=== PATIENT | male | born 1970 | race Caucasian/White ===

== ENCOUNTER 2017-08-23 06:02 | Emergency (ER) | payer OTHER ==
[~2017-08-23] VITALS: Ht 177.8 cm; Wt 152.8 kg
[~2017-08-23 06:02] MED LIST: VNTHFA/IN INH
[2017-08-23 06:06] VITALS: TEMP 36.4; Ht 177.8 cm; Wt 152.8 kg
[2017-08-23] MEDS ORDERED: MoRPHine SULFATE 4 MG/ML 1 ML CARP\\VIAL IV STA (06:21)
[2017-08-23] MEDS ORDERED: KETOROLAC TROMETHAMINE 30 MG/ML VIAL IV STA (06:21)
[2017-08-23] MEDS ORDERED: ONDANSETRON INJ 2 MG/ML 2 ML VIAL IV STA (06:21)
[2017-08-23] MEDS ORDERED: SODIUM CHLORIDE 0.9% 500ML 500 ML IV STA (06:21)
--- NOTE | 2017-08-23 06:25 | EMERGENCY ROOM VISIT NOTE ---
History Report prepared by Tatiana: Mamadou Melgar Under the Supervision of: Dr. Nataly Hammond D.O. First contact with patient: 06:10 Chief Complaint: FLANK PAIN Stated Complaint: SHARP PAINS FROM BACK TO ABDOMEN History of Present Illness The patient is a 47 year old male who presents to the Emergency Room with complaints of waxing and waning left sided abdominal pain that began this morning at 0015, 6 hours prior to arrival. The patient states that he went to bed this morning at 0000, and was woken up at 0015 with pain behind his left ribs. The pain in his ribs radiated into his left upper and lower abdomen. This is where his pain is present currently, with radiation down into his testicles. He rates the current pain as a 6/10 in severity. He denies any urinary irregularities before noticing the pain. The patient also complains of fevers, chills, nausea, and vomiting. He has no previous episodes of these symptoms. Source of History: patient Onset: 6 hours [employer] Position: abdomen (Left side, left ribs) Timing: waxes/wanes Associated Symptoms: + fevers, + chills, + nausea, + vomiting, No urinary symptoms Review of Systems See HPI for pertinent positives & negatives. A total of 10 systems reviewed and were otherwise negative. Past Medical & Surgical Medical Problems: (1) Cholecystectomy planned Family History Diabetes mellitus FHx: cancer Gallbladder disease Hypertension Social History Smoking Status: Never Smoker Marital Status: Housing Status: lives with family Occupation Status: employed Current/Historical Medications Scheduled Albuterol Hfa (Ventolin Hfa), 2 PUFFS INH Q6H Losartan Potassium (Cozaar), 100 MG PO DAILY Ondasetron Odt (Zofran Odt), 4 MG SL Q8 Tamsulosin Hcl (Flomax), 0.4 MG PO DAILY Scheduled PRN Oxycodone/Acetaminophen 5MG/325MG (Percocet 5MG/325MG), 1-2 TABS PO Q4H PRN for Pain Allergies Coded Allergies: NO KNOWN DRUG ALLERGIES (Verified Allergy, Unknown, ., 07/18/16) Physical Exam Vital Signs Date Time Temp Pulse Resp B/P (MAP) Pulse Ox O2 Delivery O2 Flow Rate FiO2 08/23/17 08:12 88 20 159/99 100 08/23/17 06:58 78 20 154/97 100 08/23/17 06:06 36.4 93 18 166/87 97 Room Air Physical Exam GENERAL: alert, well appearing, well nourished, no distress, non-toxic EYE EXAM: normal conjunctiva, PERRL and EOM's grossly intact OROPHARYNX: no exudate, no erythema, lips, buccal mucosa, and tongue normal and mucous membranes are moist NECK: supple, no nuchal rigidity, no adenopathy, non-tender LUNGS: Clear to auscultation. Normal chest wall mechanics HEART: no murmurs, S1 normal and S2 normal ABDOMEN: abdomen soft, non-tender, normo-active bowel sounds, no masses, no rebound or guarding. BACK: Minimal left flank pain. Back is symmetrical on inspection and there is no deformity, no midline tenderness, no CVA tenderness. SKIN: no rashes and no bruising UPPER EXTREMITIES: upper extremities are grossly normal. LOWER EXTREMITIES: No pitting edema. NEURO EXAM: Normal sensorium, cranial nerves II-XII [grossly] intact, normal speech, no [gross] weakness of arms, no [gross] weakness of legs. [No drift. Finger to nose intact. Gross sensation intact.] Medical Decision & Procedures ER Provider Diagnostic Interpretation: Radiology results have been interpreted by the radiologist and reviewed by me. CT OF THE ABDOMEN AND PELVIS WITHOUT CONTRAST, STONE PROTOCOL CLINICAL HISTORY: Left flank pain. COMPARISON STUDY: None. TECHNIQUE: Helical axial images of the abdomen and pelvis were obtained without IV or oral contrast according to renal stone protocol. A dose lowering technique was utilized adhering to the principles of ALARA. FINDINGS: A 9 mm x 6 mm proximal left ureteral calculus results in mild to moderate left hydronephrosis with moderate perinephric infiltration. No additional urinary calculi are identified. Evaluation of the remainder of the abdomen and pelvis is suboptimal on this unenhanced exam. A small hiatal hernia is noted. The patient is status post gastric bypass. There is no evidence for bowel obstruction. There is no biliary ductal dilatation status post cholecystectomy. Unenhanced images of liver, spleen, adrenal glands and pancreas are unremarkable. The appendix is normal. There is no lymphadenopathy. No suspicious skeletal lesions are identified. IMPRESSION: 1. 9 mm x 6 mm proximal left ureteral calculus which results in mild to moderate left hydronephrosis with moderate perinephric infiltration. 2. Status post gastric bypass. No bowel obstruction. Small hiatal hernia. Electronically signed by: Prashant Valentin M.D. 08/23/2017 7:00 AM Dictated Date/Time: 08/23/2017 6:51 AM Laboratory Results 08/23/17 06:20 Red Blood Count 5.56, Mean Corpuscular Volume 85.6, Mean Corpuscular Hemoglobin 30.4, Mean Corpuscular Hemoglobin Concent 35.5, Mean Platelet Volume 10.5, Neutrophils (%) (Auto) 88.3, Lymphocytes (%) (Auto) 6.3, Monocytes (%) (Auto) 4.5, Eosinophils (%) (Auto) 0.4, Basophils (%) (Auto) 0.2, Neutrophils # (Auto) 11.57, Lymphocytes # (Auto) 0.83, Monocytes # (Auto) 0.59, Eosinophils # (Auto) 0.05, Basophils # (Auto) 0.03 08/23/17 06:20 Test 08/23/17 06:15 08/23/17 06:20 Urine Color YELLOW Urine Appearance CLEAR (CLEAR) Urine pH 5.0 (4.5-7.5) Urine Specific [place] 1.027 (1.000-1.030) Urine Protein 1+ (NEG) Urine Glucose (UA) NEG (NEG) Urine Ketones NEG (NEG) Urine Occult Blood NEG (NEG) Urine Nitrite NEG (NEG) Urine Bilirubin NEG (NEG) Urine Urobilinogen NEG (NEG) Urine Leukocyte Esterase NEG (NEG) Urine WBC (Auto) 1-5 /hpf (0-5) Urine RBC (Auto) 0-4 /hpf (0-4) Urine Hyaline Casts (Auto) 1-5 /lpf (0-5) Urine Epithelial Cells (Auto) 10-20 /lpf (0-5) Urine Bacteria (Auto) NEG (NEG) White Blood Count 13.11 K/uL (4.8-10.8) Red Blood Count 5.56 M/uL (4.7-6.1) Hemoglobin 16.9 g/dL (14.0-18.0) Hematocrit 47.6 % (42-52) Mean Corpuscular Volume 85.6 fL (80-100) Mean Corpuscular Hemoglobin 30.4 pg (25-34) Mean Corpuscular Hemoglobin Concent 35.5 g/dl (32-36) Platelet Count 153 K/uL (130-400) Mean Platelet Volume 10.5 fL (7.4-10.4) Neutrophils (%) (Auto) 88.3 % Lymphocytes (%) (Auto) 6.3 % Monocytes (%) (Auto) 4.5 % Eosinophils (%) (Auto) 0.4 % Basophils (%) (Auto) 0.2 % Neutrophils # (Auto) 11.57 K/uL (1.4-6.5) Lymphocytes # (Auto) 0.83 K/uL (1.2-3.4) Monocytes # (Auto) 0.59 K/uL (0.11-0.59) Eosinophils # (Auto) 0.05 K/uL (0-0.5) Basophils # (Auto) 0.03 K/uL (0-0.2) RDW Standard Deviation 44.0 fL (36.4-46.3) RDW Coefficient of Variation 14.2 % (11.5-14.5) Immature Granulocyte % (Auto) 0.3 % Immature Granulocyte # (Auto) 0.04 K/uL (0.00-0.02) Anion Gap 5.0 mmol/L (3-11) Est Creatinine Clear Calc Drug Dose 111.1 ml/min Estimated GFR () 81.3 Estimated GFR (Non- 70.2 BUN/Creatinine Ratio 17.9 (10-20) Calcium Level 9.2 mg/dl (8.5-10.1) Laboratory results per my review. Medications Administered Medications (Trade) Dose Ordered Sig/Angela Route Start Time Stop Time Status Last Admin Dose Admin Sodium Chloride 500 ml @ 999 mls/hr Q31M STAT IV 08/23/17 06:21 08/23/17 06:51 DC 08/23/17 06:29 999 MLS/HR Ondansetron HCl (Zofran Inj) 4 mg NOW STAT IV 08/23/17 06:21 08/23/17 06:23 DC 08/23/17 06:29 4 MG Morphine Sulfate (MoRPHine SULFATE INJ) 4 mg NOW STAT IV 08/23/17 06:21 08/23/17 06:23 DC 08/23/17 06:30 4 MG Ketorolac Tromethamine (Toradol Inj) 30 mg NOW STAT IV 08/23/17 06:21 08/23/17 06:23 DC 08/23/17 06:29 30 MG Tamsulosin HCl (Flomax Cap) 0.4 mg NOW ONCE PO 08/23/17 07:00 08/23/17 07:01 DC 08/23/17 06:55 0.4 MG Oxycodone/ Acetaminophen (Percocet 5-325mg Tab) 1 tab NOW ONCE PO 08/23/17 07:15 08/23/17 07:16 DC 08/23/17 07:23 1 TAB ED Course 0613: The patient was evaluated in room A3. A complete history and physical exam was performed. 0621: Ordered Toradol 30 mg IV, Morphine Sulfate 4 mg IV, Zofran 4 mg IV, Sodium Chloride 500 mL @ 999 mL/hr IV. 0700: Ordered Flomax 0.4 mg PO. 0711: I checked with the patient at this time. He notes that he has no pain right now. 0713: I paged for Dr. Colt Magdaleno 0715: I discussed the case with Dr. Colt Magdaleno at this time. He believes the patient can be treated as an outpatient with close follow-up. The patient will be discharged home. Medical Decision Differential diagnosis: Etiologies such as renal colic, appendicitis, diverticulitis, mesenteric ischemia, aortic pathology, infections, inflammatory bowel disease, PUD, biliary pathology, UTI, as well as others were entertained. Patient well-appearing here and pain controlled. No evidence of acute renal dysfunction or infection. Mild leukocytosis noted likely related to pain and vomiting. Discussed case with Dr. Gregory, and agrees patient can be given a trial of outpatient management with close follow-up in the office. Patient given Flomax, pain and nausea medications, discussed hydration, symptoms to watch and return for, follow-up with urology, he verbalized understanding was agreeable to plan. Medication Reconcilliation Current Medication List: was personally reviewed by me Blood Pressure Screening Patient's blood pressure: Elevated blood pressure Blood pressure disposition: Elevated BP felt to be situational Consults Time Called: 712 Consulting Physician: Dr. Colt Magdaleno Returned Call: 07 I discussed the case with Dr. Cotl Magdaleno at this time. He agrees the patient can be treated as an outpatient with close follow-up. Impression Primary Impression: Ureterolithiasis Additional Impressions: Left flank pain Renal colic Scribe Attestation The scribe's documentation has been prepared under my direction and personally reviewed by me in its entirety. I confirm that the note above accurately reflects all work, treatment, procedures, and medical decision making performed by me. Departure Information Dispostion Home / Self-Care Prescriptions Tamsulosin Hcl (FLOMAX) 0.4 Mg Cap 0.4 MG PO DAILY, #10 CAP Prov: Nataly Hammond, DO 08/23/17 Ondasetron Odt (ZOFRAN ODT) 4 Mg Tab 4 MG SL Q8 for Nausea, #30 TAB Prov: Nataly Hammond, DO 08/23/17 Oxycodone/Acetaminophen 5MG/325MG (PERCOCET 5MG/325MG) Tab 1-2 TABS PO Q4H Y for Pain, #14 TAB Prov: Nataly Hammond, DO 08/23/17 Referrals Karen Weems M.D. (PCP) Patient Instructions My [facility] Additional Instructions Please call and follow-up with the urologist listed. Please drink plenty of water. Please take the flomax daily until you pass the stone. You may use the pain and nausea medications as prescribed. Do not take the pain medicine as drive. If you need to drive you may use ibuprofen. You may take ibuprofen with the other medications also, do not take it on an empty stomach. If you have any worsening pain, develop fevers/chills, vomiting, are unable to urinate , or you have any other new or concerning symptoms, please return to the emergency room. Problem Qualifiers
[2017-08-23 06:34] LABS: BASO % 0.2 %; BASO ABS # 0.03 K/uL (0-0.2); EOS % 0.4 %; EOS ABS # 0.05 K/uL (0-0.5); HEMATOCRIT 47.6 % (42-52); HEMOGLOBIN 16.9 g/dL (14.0-18.0); IG# 0.04 K/uL (0.00-0.02); LYMPH % 6.3 %; LYMPH ABS # 0.83 K/uL (1.2-3.4); MEAN CELL VOLUME 85.6 fL (80-100); MEAN CORPUSCULAR HEMOGLOBIN 30.4 pg (25-34); MEAN CORPUSCULAR HGB CONC 35.5 g/dl (32-36); MEAN PLATELET VOLUME 10.5 fL (7.4-10.4); MONO % 4.5 %; MONO ABS # 0.59 K/uL (0.11-0.59); NEUT % 88.3 %; NEUT ABS # 11.57 K/uL (1.4-6.5); PLATELET COUNT 153 K/uL (130-400); RED CELL DISTRIBUTION WIDTH CV 14.2 % (11.5-14.5); WHITE BLOOD COUNT 13.11 K/uL (4.8-10.8)
[2017-08-23 06:46] LABS: CALCIUM 9.2 mg/dl (8.5-10.1); CREATININE 1.22 mg/dl (0.60-1.40); POTASSIUM 3.6 mmol/L (3.5-5.1)
[2017-08-23] MEDS ORDERED: TAMSULOSIN HCL 0.4 MG CAP PO ONE (07:00)
--- NOTE | 2017-08-23 07:02 | DIAGNOSTIC IMAGING REPORT ---
CT OF THE ABDOMEN AND PELVIS WITHOUT CONTRAST, STONE PROTOCOL CLINICAL HISTORY: Left flank pain. COMPARISON STUDY: None. TECHNIQUE: Helical axial images of the abdomen and pelvis were obtained without IV or oral contrast according to renal stone protocol. A dose lowering technique was utilized adhering to the principles of ALARA. FINDINGS: A 9 mm x 6 mm proximal left ureteral calculus results in mild to moderate left hydronephrosis with moderate perinephric infiltration. No additional urinary calculi are identified. Evaluation of the remainder of the abdomen and pelvis is suboptimal on this unenhanced exam. A small hiatal hernia is noted. The patient is status post gastric bypass. There is no evidence for bowel obstruction. There is no biliary ductal dilatation status post cholecystectomy. Unenhanced images of liver, spleen, adrenal glands and pancreas are unremarkable. The appendix is normal. There is no lymphadenopathy. No suspicious skeletal lesions are identified. IMPRESSION: 1. 9 mm x 6 mm proximal left ureteral calculus which results in mild to moderate left hydronephrosis with moderate perinephric infiltration. 2. Status post gastric bypass. No bowel obstruction. Small hiatal hernia. Electronically signed by: Prashant Valentin M.D. 08/23/2017 7:00 AM Dictated Date/Time: 08/23/2017 6:51 AM
[2017-08-23] MEDS ORDERED: LOSA1TAB38 PO (07:06)
[2017-08-23] MEDS ORDERED: OXYCODONE/ACETAMINOPHEN 5-325 TAB PO ONE (07:15)
[2017-08-23] MEDS ORDERED: ONDA4TAB10 SL (07:38)
[2017-08-23] MEDS ORDERED: OXYC-57 PO (07:38)
[2017-08-23] MEDS ORDERED: TAMS0.4C38 PO (07:38)
[2017-08-23 08:12] VITALS: BP 159/99; PULSE 88; O2SAT 100
== END 2017-08-23 08:14 | disposition home or self-care (01) ==
LOC: C.EDB 06:03 → C.EDA 08:14
DX: N20.1 Calculus of ureter (principal); N23 Unspecified renal colic; Z90.49 Acquired absence of other specified parts of digestive tract; Z83.3 Family history of diabetes mellitus; Z80.9 Family history of malignant neoplasm, unspecified; Z83.79 Family history of other diseases of the digestive system; Z82.49 Family history of ischemic heart disease and other diseases of the circulatory system

== ENCOUNTER → 2017-08-25 | Outpatient (CLI) | payer OTHER ==
[~2017-08-25] MED LIST changes: +LOSA1TAB38 PO; +ONDA4TAB10 SL; +OXYC-57 PO; +TAMS0.4C38 PO
== END | disposition home or self-care (01) ==
LOC: C.CPL 16:48
PROVIDERS: ATTEND Urology
DX: N20.0 Calculus of kidney (principal)

== ENCOUNTER → 2017-08-27 | Outpatient (CLI) | payer OTHER ==
[~2017-08-27] MED LIST changes: +CALCIUM CITRATE PO; +FLM4 PO; +IRON TAB PO; +ONDA4TAB46 SL
--- NOTE | 2017-08-27 19:02 | DIAGNOSTIC IMAGING REPORT ---
KUB CLINICAL HISTORY: N20.0 NephrolithiasisTO BE DONE EITHER THE NIGHT BEFORE OR MORNI COMPARISON STUDY: CT 08/23/2017. FINDINGS: Limited exam due to considerable bowel content as well as moderate patient motion. Calcification of the patient's prior CT study is not well seen. IMPRESSION: Near nondiagnostic exam due to considerable bowel content. Previous described calcification on CT is not easily appreciated on plain film criteria The above report was generated using voice recognition software. It may contain grammatical, syntax or spelling errors. Electronically signed by: Esequiel Arenas M.D. 08/27/2017 7:01 PM Dictated Date/Time: 08/27/2017 6:59 PM
== END | disposition home or self-care (01) ==
LOC: C.RAD 18:11
PROVIDERS: ATTEND Urology
DX: N20.0 Calculus of kidney (principal)

== ENCOUNTER → 2017-08-28 | Day surgery (SDC) | payer OTHER ==
[2017-08-27 08:29] VITALS: Ht 177.8 cm; Wt 151.5 kg
--- NOTE | 2017-08-27 08:49 | PAT Medication Instructions ---
Service Date Aug 27, 2017. Current Home Medication List Albuterol Hfa (Ventolin Hfa), 2 PUFFS INH Q6H Losartan Potassium (Cozaar), 100 MG PO QAM Ondansetron Hcl (Zofran), 4 MG SL PRN PRN for Nausea Oxycodone/Acetaminophen 5MG/325MG (Percocet 5MG/325MG), 1-2 TABLETS PO Q4H PRN for N Tamsulosin HCl (Tamsulosin HCl), 0.4 MG PO QAM [Calcium Citrate], 1 TAB PO QAM [Iron Tab], 1 TAB PO QAM Medication Instructions For Your Scheduled Surgery - Hold the following medications the morning of surgery: [Calcium Citrate], 1 TAB PO QAM [Iron Tab], 1 TAB PO QAM Losartan Potassium (Cozaar), 100 MG PO QAM - Take the following medications the morning of surgery with a sip of water: Tamsulosin HCl (Tamsulosin HCl), 0.4 MG PO QAM Ondansetron Hcl (Zofran), 4 MG SL PRN PRN for Nausea (if needed) Oxycodone/Acetaminophen 5MG/325MG (Percocet 5MG/325MG), 1-2 TABLETS PO Q4H PRN ( if needed, can be taken up to four hours before surgery) Albuterol Hfa (Ventolin Hfa), 2 PUFFS INH Q6H (if needed) - Take the following medications as scheduled the night before surgery: Albuterol Hfa (Ventolin Hfa), 2 PUFFS INH Q6H (if needed) Ondansetron Hcl (Zofran), 4 MG SL PRN PRN for Nausea (if needed) Oxycodone/Acetaminophen 5MG/325MG (Percocet 5MG/325MG), 1-2 TABLETS PO Q4H PRN ( if needed, can be taken up to four hours before surgery) If you have any questions please call us at [phone] or [phone] or [phone]
--- NOTE | 2017-08-27 09:20 | DIAGNOSTIC IMAGING REPORT ---
CHEST 2 VIEWS ROUTINE HISTORY: Preop. COMPARISON: Chest 09/01/2016. FINDINGS: The lungs are clear. The heart remains mildly enlarged. No pleural effusions. No pneumothorax. IMPRESSION: Stable mild cardiomegaly. No acute process within the chest. Electronically signed by: Vipul Boyd M.D. 08/27/2017 9:19 AM Dictated Date/Time: 08/27/2017 9:18 AM
[~2017-08-28] VITALS: Ht 177.8 cm; Wt 151.5 kg
[~2017-08-28] MED LIST changes: +ATROPINE SULFATE 0.1 MG/ML 5ML SYR IV PRN; +CEFAZOLIN 3000MG IV PUSH 15 ML IV SCH; +DEXAMETHASONE SOD INJ 4 MG/ML VIAL ONE; +EpHEDrine SULFATE INJ 50 MG/ML AMP IV PRN; +FENTANYL CITRATE INJ 50 MCG/1 ML 2 ML VIAL IV PRN; +FENTANYL CITRATE INJ 50 MCG/1 ML 2 ML VIAL ONE; +LACTATED RINGER'S 1000ML 1,000 ML IV SCH; +LIDOCAINE HCL 2% 2 ML VIAL (20MG/ML) ONE; +MIDAZOLAM HCL 1 MG/ML 2ML VIAL ONE; -ONDA4TAB10 SL; +ONDANSETRON INJ 2 MG/ML 2 ML VIAL IV PRN; +ONDANSETRON INJ 2 MG/ML 2 ML VIAL ONE; +PROMETHAZINE HCL INJ 6.25 MG in SODIUM CHLORIDE 0.9% 50ML 50 ML IV PRN; +PROPOFOL IV EMULSION 10 MG/ML 20 ML VIAL IV ONE; -TAMS0.4C38 PO
--- NOTE | 2017-08-28 07:43 | History & Physical Bridge - SC ---
H&P Re-Evaluation Bridge Note: I have examined the patient, reviewed the History & Physical and in the interval since the performance of the History & Physical I have noted the following changes of clinical significance: No changes noted
--- NOTE | 2017-08-28 08:43 | [facility] Post Operative Brief Note ---
Immediate Operative Summary Operative Date Aug 28, 2017. Pre-Operative Diagnosis Left Ureteral Stone Post-Operative Diagnosis Same as pre-op Procedure(s) Performed Left Extracorporeal Shock Wave Lithotripsy - Ureteral Surgeon Dr. Bledsoe Avionic Technician Surgeon(s) None Estimated Blood Loss 0 mL Findings stone visible on dry run Specimens None
--- NOTE | 2017-08-28 08:45 | Discharge Instructions-SurgCtr ---
Discharge Instructions Date of Service Aug 28, 2017. Visit Reason for Visit: Stones Discharge Discharge Diagnosis / Problem: s/p l eswl Discharge Goals Goal(s): Decrease discomfort, Improve disease control Activity Recommendations Activity Limitations: per Instructions/Follow-up section (no driving on narcotics,mirilax for constipation) Anesthesia . Post Anesthesia Instructions: If you have had General Anesthesia or IV Sedation: * Do not drive today. * Resume driving when surgeon permits. * Do not make important decisions or sign legal documents today. * Call surgeon for: 1. Temperature elevations greater than 101 degrees F. 2. Uncontrollable pain. 3. Excessive bleeding. 4. Persistent nausea and vomiting. 5. Medication intolerance (nausea, vomiting or rash). * For nausea and vomiting use only clear liquids such as: tea, soda, bouillon until nausea subsides, then gradually increase diet as tolerated. * If you have any concerns or questions, call your surgeon's office. If physician is unavailable and it is an emergency, call 911 or go to the nearest emergency room. . Diet Recommendations Home Diet: resume previous diet Procedures Procedures Performed: Left Extracorporeal Shock Wave Lithotripsy - Ureteral Pending Studies Studies pending at discharge: no Medical Emergencies . Who to Call and When: Medical Emergencies: If at any time you feel your situation is an emergency, please call 911 immediately. . Non-Emergent Contact Non-Emergency issues call your: Urologist . . "Provider Documentation" section prepared by Omar Bledsoe. .
--- NOTE | 2017-08-28 10:14 | Anesthesia Progress Nt - [facility] ---
Anesthesia Post Op Note Date & Time Aug 28, 2017 at 10:14 Vital Signs Pain Intensity: 0 Vital Signs Past 12 Hours Date Time Temp Pulse Resp B/P (MAP) Pulse Ox O2 Delivery O2 Flow Rate FiO2 08/28/17 09:50 79 16 149/90 (109) 94 Room Air 08/28/17 09:35 36.6 83 20 135/91 95 Room Air 08/28/17 09:35 135/91 08/28/17 09:33 79 25 97 08/28/17 09:33 80 25 08/28/17 09:30 144/87 08/28/17 09:28 79 13 08/28/17 09:28 78 13 91 08/28/17 09:25 134/87 08/28/17 09:23 81 16 08/28/17 09:23 80 16 95 08/28/17 09:20 141/88 08/28/17 09:18 78 19 98 08/28/17 09:18 79 19 08/28/17 09:15 140/92 08/28/17 09:13 79 13 98 08/28/17 09:13 79 13 08/28/17 09:10 141/97 08/28/17 09:08 79 15 98 08/28/17 09:08 79 15 08/28/17 09:07 156/106 08/28/17 09:05 168/115 08/28/17 09:03 75 18 08/28/17 09:03 75 18 99 08/28/17 09:00 156/103 08/28/17 08:58 78 14 97 08/28/17 08:58 78 14 08/28/17 08:55 160/97 08/28/17 08:53 77 13 154/98 97 08/28/17 08:53 36.4 78 16 154/98 98 Mask 6 08/28/17 08:53 77 13 08/28/17 06:34 36.9 87 22 149/111 (124) 94 Room Air Notes Mental Status: alert / awake / arousable, participated in evaluation Pt Amnestic to Procedure: Yes Nausea / Vomiting: adequately controlled Pain: adequately controlled Airway Patency, RR, SpO2: stable & adequate BP & HR: stable & adequate Hydration State: stable & adequate Anesthetic Complications: no major complications apparent
[2017-08-28 10:15] VITALS: BP 136/85; PULSE 78; TEMP 36.5; O2SAT 94
--- NOTE | 2017-08-28 11:15 | OPERATIVE REPORT ---
DATE OF OPERATION: 08/28/2017 PREOPERATIVE DIAGNOSIS: Left proximal ureteral stone. POSTOPERATIVE DIAGNOSIS: Same. SURGEON: Dr. Omar Bledsoe. INDICATIONS: The patient is a 47-year-old male diagnosed with a proximal stone on CAT scan. Stone was difficult to see on KUB, but not knowing the location we did a dry run and were able to localize the stone. Because of this the patient was put to sleep and with Venodyne stockings and having received his antibiotics and the stone was visualized in 2 views. He received 3000 shocks, the majority at level 6. At the end of the procedure, he was transferred to the recovery room in stable condition. I attest to the content of the Intraoperative Record and any orders documented therein. Any exception s are noted below.
== END | disposition home or self-care (01) ==
LOC: X.SURG 08-27 08:03
PROVIDERS: ATTEND Urology
DX: N20.1 Calculus of ureter (principal); R30.0 Dysuria; I10 Essential (primary) hypertension; J45.909 Unspecified asthma, uncomplicated; Z98.84 Bariatric surgery status; E66.01 Morbid (severe) obesity due to excess calories; Z68.42 Body mass index [BMI] 45.0-49.9, adult; Z98.890 Other specified postprocedural states

== ENCOUNTER → 2017-09-10 | Outpatient (CLI) | payer OTHER ==
[~2017-09-10] MED LIST changes: -ATROPINE SULFATE 0.1 MG/ML 5ML SYR IV PRN; -CEFAZOLIN 3000MG IV PUSH 15 ML IV SCH; -DEXAMETHASONE SOD INJ 4 MG/ML VIAL ONE; -EpHEDrine SULFATE INJ 50 MG/ML AMP IV PRN; -FENTANYL CITRATE INJ 50 MCG/1 ML 2 ML VIAL IV PRN; -FENTANYL CITRATE INJ 50 MCG/1 ML 2 ML VIAL ONE; -LACTATED RINGER'S 1000ML 1,000 ML IV SCH; -LIDOCAINE HCL 2% 2 ML VIAL (20MG/ML) ONE; -MIDAZOLAM HCL 1 MG/ML 2ML VIAL ONE; -ONDANSETRON INJ 2 MG/ML 2 ML VIAL IV PRN; -ONDANSETRON INJ 2 MG/ML 2 ML VIAL ONE; -PROMETHAZINE HCL INJ 6.25 MG in SODIUM CHLORIDE 0.9% 50ML 50 ML IV PRN; -PROPOFOL IV EMULSION 10 MG/ML 20 ML VIAL IV ONE
--- NOTE | 2017-09-10 12:19 | DIAGNOSTIC IMAGING REPORT ---
KUB HISTORY: Nephrolithiasis. COMPARISON: KUB 08/27/2017. FINDINGS: The bowel gas pattern is unremarkable. There are no dilated loops of small bowel to suggest an obstruction. No renal calculi. No ureteral calculi. Calcifications in the deep pelvis likely represent phleboliths. These remain unchanged. Cholecystectomy. Suture material within the left upper quadrant. No pneumoperitoneum or pneumatosis. IMPRESSION: No definite renal or ureteral calculi identified. Electronically signed by: Vipul Boyd M.D. 09/10/2017 12:18 PM Dictated Date/Time: 09/10/2017 12:17 PM
== END | disposition home or self-care (01) ==
LOC: C.RAD 11:42
PROVIDERS: ATTEND Urology
DX: N20.0 Calculus of kidney (principal)

== ENCOUNTER → 2017-09-10 | Outpatient (CLI) | payer OTHER | END | disposition home or self-care (01) | LOC: C.LABSPEC 17:22 | PROVIDERS: ATTEND Urology | DX: N20.0 Calculus of kidney (principal) ==